=== PATIENT | male | born 1960 | race Caucasian/White ===

== ENCOUNTER 2024-11-24 00:46 | Outpatient (CLI) | payer MEDICARE, SELFPAY ==
[2024-11-24 10:00] LABS: Abs Immature Grans 0.02 10^3/uL (0.0-0.06); Absolute Basophil Count 0.08 10^3/uL (0.0-0.2); Absolute Lymphocyte Count 1.66 10^3/uL (1.2-3.4); Absolute Monocyte Count 0.85 10^3/uL (0.1-0.8); Absolute Neutrophil Count 6.26 10^3/uL (1.2-6.7); Basophils % 0.9 %; Eosinophils % 1.1 %; HCT 44.5 % (40.0-50.0); HGB 15.1 g/dL (13.5-17.5); Immature Grans % 0.2 %; Lymphocytes % 18.5 %; MCH 33.6 pg (27.0-33.0); MCHC 33.9 % (32.0-36.0); MCV 99 fL (80-95); MPV 8.2 fL (8.0-11.0); Monocytes % 9.5 %; Neutrophils % 69.8 %; Platelet Count 369 10^3/uL (130-400); RBC 4.49 10^6/uL (4.36-5.78); RDW 12.1 % (11.8-14.1); RDW-SD 44.8 fL; WBC 8.97 10^3/uL (4.4-10.8)
[2024-11-24 10:19] LABS: ALT 21 U/L (16-63); AST 10 U/L (15-37); Albumin 3.5 g/dL (3.4-5.0); Alkaline Phosphatase 105 U/L (46-116); Anion Gap 6.4 mmol/L (3-11); BUN 7 mg/dL (7-18); Bilirubin, Total 0.61 mg/dL (0.2-1.0); CO2 31.6 mmol/L (21.0-32.0); CREATININE 0.9 mg/dL (0.70-1.30); Calcium 9.5 mg/dL (8.5-10.1); Chloride 102 mmol/L (98-107); Estimated GFR 94.19 (mL/min/1.73m2); Glucose 108 mg/dL (74-106); Magnesium 2.1 mg/dL (1.8-2.4); Potassium 4.1 mmol/L (3.5-5.1); Sodium 140 mmol/L (136-145); Total Protein 7.4 g/dL (6.4-8.2)
== END 2024-11-24 00:47 | disposition home or self-care (01) ==
PROVIDERS: Visit Provider Internal Medicine Medical Oncology
DX: C15.8 Malignant neoplasm of overlapping sites of esophagus (principal)
CPT/HCPCS: 36415; 80053; 83735; 85025

== ENCOUNTER 2024-11-30 02:37 | Outpatient (CLI) | payer MEDICARE, SELFPAY ==
[2024-11-30 10:35] LABS: Abs Immature Grans 0.15 10^3/uL (0.0-0.06); Absolute Basophil Count 0.08 10^3/uL (0.0-0.2); Absolute Eosinophil Count 0.02 10^3/uL (0.0-0.7); Absolute Lymphocyte Count 0.73 10^3/uL (1.2-3.4); Absolute Neutrophil Count 5.69 10^3/uL (1.2-6.7); Basophils % 1.1 %; Eosinophils % 0.3 %; HCT 40.9 % (40.0-50.0); HGB 13.8 g/dL (13.5-17.5); Immature Grans % 2.1 %; MCH 33.3 pg (27.0-33.0); MCHC 33.7 % (32.0-36.0); MCV 99 fL (80-95); MPV 8.4 fL (8.0-11.0); Monocytes % 8.3 %; Neutrophils % 78.2 %; Platelet Count 314 10^3/uL (130-400); RBC 4.15 10^6/uL (4.36-5.78); RDW-SD 43.9 fL; WBC 7.27 10^3/uL (4.4-10.8)
[2024-11-30 11:03] LABS: ALT 30 U/L (16-63); AST 18 U/L (15-37); Alkaline Phosphatase 84 U/L (46-116); Anion Gap 8.8 mmol/L (3-11); BUN 12 mg/dL (7-18); Bilirubin, Total 0.76 mg/dL (0.2-1.0); CO2 30.2 mmol/L (21.0-32.0); CREATININE 0.9 mg/dL (0.70-1.30); Calcium 9.6 mg/dL (8.5-10.1); Chloride 97 mmol/L (98-107); Estimated GFR 94.19 (mL/min/1.73m2); Glucose 117 mg/dL (74-106); Magnesium 1.9 mg/dL (1.8-2.4); Potassium 4.4 mmol/L (3.5-5.1); Sodium 136 mmol/L (136-145); Total Protein 7.8 g/dL (6.4-8.2)
== END 2024-11-30 02:38 | disposition home or self-care (01) ==
PROVIDERS: Visit Provider Internal Medicine Medical Oncology
DX: C15.8 Malignant neoplasm of overlapping sites of esophagus (principal)
CPT/HCPCS: 36415; 80053; 83735; 85025

== ENCOUNTER 2024-12-07 01:59 | Outpatient (CLI) | payer MEDICARE, SELFPAY ==
[2024-12-07 08:28] LABS: Abs Immature Grans 0.03 10^3/uL (0.0-0.06); Absolute Basophil Count 0.03 10^3/uL (0.0-0.2); Absolute Eosinophil Count 0.02 10^3/uL (0.0-0.7); Absolute Lymphocyte Count 0.33 10^3/uL (1.2-3.4); Absolute Monocyte Count 0.49 10^3/uL (0.1-0.8); Absolute Neutrophil Count 2.91 10^3/uL (1.2-6.7); Basophils % 0.8 %; Eosinophils % 0.5 %; HCT 35.8 % (40.0-50.0); HGB 12.3 g/dL (13.5-17.5); Immature Grans % 0.8 %; Lymphocytes % 8.7 %; MCH 34.1 pg (27.0-33.0); MCHC 34.4 % (32.0-36.0); MCV 99 fL (80-95); MPV 8.1 fL (8.0-11.0); Monocytes % 12.9 %; Neutrophils % 76.3 %; Platelet Count 312 10^3/uL (130-400); RBC 3.61 10^6/uL (4.36-5.78); RDW 12.2 % (11.8-14.1); RDW-SD 44.6 fL; WBC 3.81 10^3/uL (4.4-10.8)
[2024-12-07 09:00] LABS: ALT 52 U/L (16-63); AST 19 U/L (15-37); Albumin 2.6 g/dL (3.4-5.0); Alkaline Phosphatase 72 U/L (46-116); Anion Gap 7.1 mmol/L (3-11); BUN 11 mg/dL (7-18); Bilirubin, Total 0.54 mg/dL (0.2-1.0); CO2 27.9 mmol/L (21.0-32.0); CREATININE 0.8 mg/dL (0.70-1.30); Calcium 9.2 mg/dL (8.5-10.1); Chloride 98 mmol/L (98-107); Estimated GFR 97.61 (mL/min/1.73m2); Glucose 120 mg/dL (74-106); Magnesium 1.9 mg/dL (1.8-2.4); Potassium 3.9 mmol/L (3.5-5.1); Sodium 133 mmol/L (136-145); Total Protein 7.3 g/dL (6.4-8.2)
== END 2024-12-07 02:00 | disposition home or self-care (01) ==
LOC: LBO 01:59
PROVIDERS: Visit Provider Internal Medicine Medical Oncology
DX: C15.8 Malignant neoplasm of overlapping sites of esophagus (principal)
CPT/HCPCS: 36415; 80053; 83735; 85025

== ENCOUNTER 2024-12-14 02:59 | Outpatient (CLI) | payer MEDICARE, SELFPAY ==
[2024-12-14 09:27] LABS: Abs Immature Grans 0.02 10^3/uL (0.0-0.06); Absolute Basophil Count 0.03 10^3/uL (0.0-0.2); Absolute Eosinophil Count 0.01 10^3/uL (0.0-0.7); Absolute Lymphocyte Count 0.32 10^3/uL (1.2-3.4); Absolute Monocyte Count 0.26 10^3/uL (0.1-0.8); Absolute Neutrophil Count 2.83 10^3/uL (1.2-6.7); Basophils % 0.9 %; Eosinophils % 0.3 %; HCT 36.5 % (40.0-50.0); Immature Grans % 0.6 %; Lymphocytes % 9.2 %; MCHC 32.9 % (32.0-36.0); MCV 100 fL (80-95); MPV 7.8 fL (8.0-11.0); Monocytes % 7.5 %; Neutrophils % 81.5 %; Platelet Count 315 10^3/uL (130-400); RBC 3.64 10^6/uL (4.36-5.78); RDW 12.5 % (11.8-14.1); RDW-SD 46.2 fL; WBC 3.47 10^3/uL (4.4-10.8)
[2024-12-14 09:52] LABS: ALT 30 U/L (16-63); AST 11 U/L (15-37); Albumin 2.6 g/dL (3.4-5.0); Alkaline Phosphatase 79 U/L (46-116); Anion Gap 8.2 mmol/L (3-11); BUN 10 mg/dL (7-18); CO2 29.8 mmol/L (21.0-32.0); CREATININE 0.8 mg/dL (0.70-1.30); Calcium 9.1 mg/dL (8.5-10.1); Chloride 102 mmol/L (98-107); Estimated GFR 97.61 (mL/min/1.73m2); Glucose 148 mg/dL (74-106); Magnesium 1.7 mg/dL (1.8-2.4); Potassium 3.9 mmol/L (3.5-5.1); Sodium 140 mmol/L (136-145); Total Protein 6.9 g/dL (6.4-8.2)
== END 2024-12-14 03:00 | disposition home or self-care (01) ==
LOC: LBO 02:59
PROVIDERS: Visit Provider Internal Medicine Medical Oncology
DX: C15.8 Malignant neoplasm of overlapping sites of esophagus (principal)
CPT/HCPCS: 36415; 80053; 83735; 85025

== ENCOUNTER 2024-12-21 02:05 | Outpatient (CLI) | payer MEDICARE, SELFPAY ==
[2024-12-21 09:39] LABS: Abs Immature Grans 0.02 10^3/uL (0.0-0.06); Absolute Basophil Count 0.03 10^3/uL (0.0-0.2); Absolute Eosinophil Count 0.03 10^3/uL (0.0-0.7); Absolute Lymphocyte Count 0.31 10^3/uL (1.2-3.4); Absolute Monocyte Count 0.19 10^3/uL (0.1-0.8); Absolute Neutrophil Count 2.33 10^3/uL (1.2-6.7); HCT 36.2 % (40.0-50.0); Immature Grans % 0.7 %; Lymphocytes % 10.7 %; MCH 33.1 pg (27.0-33.0); MCHC 33.1 % (32.0-36.0); MCV 100 fL (80-95); MPV 8.1 fL (8.0-11.0); Monocytes % 6.5 %; Neutrophils % 80.1 %; Platelet Count 211 10^3/uL (130-400); RBC 3.62 10^6/uL (4.36-5.78); RDW 12.9 % (11.8-14.1); RDW-SD 46.7 fL; WBC 2.91 10^3/uL (4.4-10.8)
[2024-12-21 09:54] LABS: ALT 24 U/L (16-63); AST 13 U/L (15-37); Albumin 2.8 g/dL (3.4-5.0); Alkaline Phosphatase 90 U/L (46-116); Anion Gap 7.8 mmol/L (3-11); BUN 8 mg/dL (7-18); Bilirubin, Total 0.35 mg/dL (0.2-1.0); CO2 28.2 mmol/L (21.0-32.0); CREATININE 0.8 mg/dL (0.70-1.30); Calcium 9.2 mg/dL (8.5-10.1); Chloride 103 mmol/L (98-107); Estimated GFR 97.61 (mL/min/1.73m2); Glucose 165 mg/dL (74-106); Magnesium 1.9 mg/dL (1.8-2.4); Potassium 3.8 mmol/L (3.5-5.1); Sodium 139 mmol/L (136-145); Total Protein 6.9 g/dL (6.4-8.2)
== END 2024-12-21 02:06 | disposition home or self-care (01) ==
PROVIDERS: Visit Provider Internal Medicine Medical Oncology
DX: C15.8 Malignant neoplasm of overlapping sites of esophagus (principal)
CPT/HCPCS: 36415; 80053; 83735; 85025

== ENCOUNTER 2024-12-28 04:21 | Outpatient (CLI) | payer MEDICARE, SELFPAY ==
[2024-12-28 09:43] LABS: Abs Immature Grans 0.01 10^3/uL (0.0-0.06); Absolute Basophil Count 0.03 10^3/uL (0.0-0.2); Absolute Eosinophil Count 0.04 10^3/uL (0.0-0.7); Absolute Lymphocyte Count 0.24 10^3/uL (1.2-3.4); Absolute Monocyte Count 0.26 10^3/uL (0.1-0.8); Absolute Neutrophil Count 1.66 10^3/uL (1.2-6.7); Basophils % 1.3 %; Eosinophils % 1.8 %; HCT 35.1 % (40.0-50.0); HGB 11.9 g/dL (13.5-17.5); Immature Grans % 0.4 %; Lymphocytes % 10.7 %; MCH 33.4 pg (27.0-33.0); MCHC 33.9 % (32.0-36.0); MCV 99 fL (80-95); MPV 8.4 fL (8.0-11.0); Monocytes % 11.6 %; Neutrophils % 74.2 %; Platelet Count 176 10^3/uL (130-400); RBC 3.56 10^6/uL (4.36-5.78); RDW 13.4 % (11.8-14.1); RDW-SD 47.6 fL; WBC 2.24 10^3/uL (4.4-10.8)
[2024-12-28 09:59] LABS: ALT 23 U/L (16-63); AST 12 U/L (15-37); Albumin 3.1 g/dL (3.4-5.0); Alkaline Phosphatase 95 U/L (46-116); Anion Gap 4.7 mmol/L (3-11); BUN 6 mg/dL (7-18); Bilirubin, Total 0.6 mg/dL (0.2-1.0); CO2 31.3 mmol/L (21.0-32.0); CREATININE 0.8 mg/dL (0.70-1.30); Calcium 9.4 mg/dL (8.5-10.1); Chloride 103 mmol/L (98-107); Estimated GFR 97.61 (mL/min/1.73m2); Glucose 109 mg/dL (74-106); Magnesium 1.9 mg/dL; Potassium 4.2 mmol/L (3.5-5.1); Sodium 139 mmol/L (136-145); Total Protein 7.2 g/dL (6.4-8.2)
== END 2024-12-28 04:22 | disposition home or self-care (01) ==
LOC: LBO 04:22
PROVIDERS: Visit Provider Internal Medicine Medical Oncology
DX: C15.8 Malignant neoplasm of overlapping sites of esophagus (principal)
CPT/HCPCS: 36415; 80053; 83735; 85025

== ENCOUNTER 2025-04-19 01:56 | Outpatient (RCR) | payer MEDICARE, SELFPAY ==
[2025-04-19] MEDS: Normal Saline Flush 10 ML SYR IVP (09:04)
[2025-04-19 09:18] LABS: Abs Immature Grans 0.03 10^3/uL (0.0-0.06); Absolute Basophil Count 0.04 10^3/uL (0.0-0.2); Absolute Eosinophil Count 0.11 10^3/uL (0.0-0.7); Absolute Lymphocyte Count 0.67 10^3/uL (1.2-3.4); Absolute Monocyte Count 0.75 10^3/uL (0.1-0.8); Absolute Neutrophil Count 7.44 10^3/uL (1.2-6.7); Basophils % 0.4 %; Eosinophils % 1.2 %; HCT 44.3 % (40.0-50.0); HGB 14.6 g/dL (13.5-17.5); Immature Grans % 0.3 %; Lymphocytes % 7.4 %; MCH 31.3 pg (27.0-33.0); MCV 95 fL (80-95); MPV 8.5 fL (8.0-11.0); Monocytes % 8.3 %; Neutrophils % 82.4 %; Platelet Count 367 10^3/uL (130-400); RBC 4.67 10^6/uL (4.36-5.78); RDW 13.2 % (11.8-14.1); RDW-SD 46.8 fL; WBC 9.04 10^3/uL (4.4-10.8)
[2025-04-19 09:36] LABS: ALT 21 U/L (16-63); AST 14 U/L (15-37); Albumin 3.6 g/dL (3.4-5.0); Alkaline Phosphatase 138 U/L (46-116); Anion Gap 8.1 mmol/L (3-11); BUN 7 mg/dL (7-18); Bilirubin, Total 0.4 mg/dL (0.2-1.0); CO2 29.9 mmol/L (21.0-32.0); CREATININE 0.8 mg/dL (0.70-1.30); Calcium 9.8 mg/dL (8.5-10.1); Chloride 98 mmol/L (98-107); Estimated GFR 97.61 (mL/min/1.73m2); Glucose 110 mg/dL (74-106); Magnesium 2.1 mg/dL (1.8-2.4); Sodium 136 mmol/L (136-145); Total Protein 8.3 g/dL (6.4-8.2)
== END 2025-04-19 23:59 | disposition home or self-care (01) ==
LOC: INF 01:56
PROVIDERS: Visit Provider Internal Medicine Medical Oncology
DX: C15.8 Malignant neoplasm of overlapping sites of esophagus (principal); Z45.2 Encounter for adjustment and management of vascular access device
CPT/HCPCS: 36591; 80053; 83735; 85025

== ENCOUNTER 2025-05-17 02:45 | Outpatient (RCR) | payer MEDICARE, SELFPAY ==
[2025-05-04] MEDS: Normal Saline Flush 10 ML SYR IVP (08:50)
[2025-05-04 09:14] LABS: Abs Immature Grans 0.01 10^3/uL (0.0-0.06); HCT 41.0 % (40.0-50.0); HGB 13.8 g/dL (13.5-17.5); Immature Grans % 0.1 %; MCH 31.6 pg (27.0-33.0); MCHC 33.7 % (32.0-36.0); MCV 94 fL (80-95); MPV 8.2 fL (8.0-11.0); Platelet Count 294 10^3/uL (130-400); RBC 4.37 10^6/uL (4.36-5.78); RDW 13.5 % (11.8-14.1); RDW-SD 45.8 fL; WBC 7.92 10^3/uL (4.4-10.8)
[2025-05-04 09:32] LABS: ALT 19 U/L (16-63); AST 15 U/L (15-37); Albumin 3.4 g/dL (3.4-5.0); Alkaline Phosphatase 135 U/L (46-116); Anion Gap 8.6 mmol/L (3-11); BUN 11 mg/dL (7-18); Bilirubin, Total 0.4 mg/dL (0.2-1.0); CO2 29.4 mmol/L (21.0-32.0); Calcium 9.8 mg/dL (8.5-10.1); Chloride 99 mmol/L (98-107); Estimated GFR 106.46 (mL/min/1.73m2); Glucose 103 mg/dL (74-106); Magnesium 2.3 mg/dL (1.8-2.4); Potassium 4.1 mmol/L (3.5-5.1); Sodium 137 mmol/L (136-145); Total Protein 7.9 g/dL (6.4-8.2)
[2025-05-17 10:30] LABS: Abs Immature Grans 0.03 10^3/uL (0.0-0.06); HCT 38.0 % (40.0-50.0); HGB 12.8 g/dL (13.5-17.5); Immature Grans % 0.4 %; MCH 31.1 pg (27.0-33.0); MCHC 33.7 % (32.0-36.0); MCV 93 fL (80-95); MPV 8.5 fL (8.0-11.0); Platelet Count 182 10^3/uL (130-400); RBC 4.11 10^6/uL (4.36-5.78); RDW 14.2 % (11.8-14.1); RDW-SD 47.1 fL; WBC 7.62 10^3/uL (4.4-10.8)
[2025-05-17 10:58] LABS: ALT 24 U/L (16-63); AST 23 U/L (15-37); Albumin 3.2 g/dL (3.4-5.0); Alkaline Phosphatase 122 U/L (46-116); Anion Gap 8.9 mmol/L (3-11); BUN 12 mg/dL (7-18); Bilirubin, Total 0.5 mg/dL (0.2-1.0); CO2 29.1 mmol/L (21.0-32.0); Calcium 9.7 mg/dL (8.5-10.1); Chloride 101 mmol/L (98-107); Glucose 104 mg/dL (74-106); Magnesium 2.1 mg/dL (1.8-2.4); Potassium 3.9 mmol/L (3.5-5.1); Sodium 139 mmol/L (136-145); Total Protein 7.5 g/dL (6.4-8.2)
[2025-05-17] MEDS: Normal Saline Flush 10 ML SYR IVP (11:28)
== END 2025-05-20 23:59 | disposition home or self-care (01) ==
LOC: INF 02:45
PROVIDERS: Visit Provider Internal Medicine Medical Oncology
DX: C15.8 Malignant neoplasm of overlapping sites of esophagus (principal); Z45.2 Encounter for adjustment and management of vascular access device
CPT/HCPCS: 36591; 80053; 83735; 85025

== ENCOUNTER 2025-06-01 02:04 | Outpatient (RCR) | payer MEDICARE, SELFPAY ==
[2025-06-01 09:02] LABS: Abs Immature Grans 0.01 10^3/uL (0.0-0.06); HCT 34.2 % (40.0-50.0); HGB 11.7 g/dL (13.5-17.5); Immature Grans % 0.2 %; MCH 32.4 pg (27.0-33.0); MCHC 34.2 % (32.0-36.0); MCV 95 fL (80-95); MPV 8.6 fL (8.0-11.0); Platelet Count 161 10^3/uL (130-400); RBC 3.61 10^6/uL (4.36-5.78); RDW 15.4 % (11.8-14.1); RDW-SD 51.6 fL; WBC 5.67 10^3/uL (4.4-10.8)
[2025-06-01] MEDS: Normal Saline Flush 10 ML SYR IVP (09:12)
[2025-06-01 09:32] LABS: ALT 20 U/L (16-63); AST 19 U/L (15-37); Albumin 2.9 g/dL (3.4-5.0); Alkaline Phosphatase 119 U/L (46-116); Anion Gap 4.7 mmol/L (3-11); BUN 16 mg/dL (7-18); Bilirubin, Total 0.5 mg/dL (0.2-1.0); CO2 31.3 mmol/L (21.0-32.0); Calcium 9.8 mg/dL (8.5-10.1); Chloride 102 mmol/L (98-107); Estimated GFR 100.99 (mL/min/1.73m2); Glucose 100 mg/dL (74-106); Magnesium 2.0 mg/dL (1.8-2.4); Potassium 3.7 mmol/L (3.5-5.1); Sodium 138 mmol/L (136-145); Total Protein 7.1 g/dL (6.4-8.2)
== END 2025-06-20 23:59 | disposition home or self-care (01) ==
LOC: INF 02:04
PROVIDERS: Visit Provider Internal Medicine Medical Oncology
DX: C15.8 Malignant neoplasm of overlapping sites of esophagus (principal); Z45.2 Encounter for adjustment and management of vascular access device
CPT/HCPCS: 36591; 80053; 83735; 85025

== ENCOUNTER 2025-07-06 04:04 | Outpatient (RCR) | payer MEDICARE, SELFPAY ==
[2025-07-06] MEDS: Normal Saline Flush 10 ML SYR IVP (08:53)
[2025-07-06 08:58] LABS: Abs Immature Grans 0.07 10^3/uL (0.0-0.06); HCT 24.0 % (40.0-50.0); HGB 7.8 g/dL (13.5-17.5); Immature Grans % 0.5 %; MCH 32.5 pg (27.0-33.0); MCHC 32.5 % (32.0-36.0); MCV 100 fL (80-95); MPV 9.1 fL (8.0-11.0); Platelet Count 330 10^3/uL (130-400); RBC 2.40 10^6/uL (4.36-5.78); RDW 16.6 % (11.8-14.1); RDW-SD 61.1 fL; WBC 13.58 10^3/uL (4.4-10.8)
[2025-07-06 09:16] LABS: ALT 36 U/L (16-63); AST 18 U/L (15-37); Albumin 1.9 g/dL (3.4-5.0); Alkaline Phosphatase 135 U/L (46-116); Anion Gap 8.8 mmol/L (3-11); BUN 30 mg/dL (7-18); Bilirubin, Total 0.4 mg/dL (0.2-1.0); CO2 27.2 mmol/L (21.0-32.0); Calcium 9.1 mg/dL (8.5-10.1); Chloride 104 mmol/L (98-107); Glucose 201 mg/dL (74-106); Magnesium 2.1 mg/dL (1.8-2.4); Potassium 3.7 mmol/L (3.5-5.1); Sodium 140 mmol/L (136-145); Total Protein 6.7 g/dL (6.4-8.2)
[2025-07-06 09:29] LABS: Hypochromasia 2+
== END 2025-07-20 23:59 | disposition home or self-care (01) ==
LOC: INF 04:04
PROVIDERS: Visit Provider Internal Medicine Medical Oncology
DX: C15.8 Malignant neoplasm of overlapping sites of esophagus (principal); Z45.2 Encounter for adjustment and management of vascular access device
CPT/HCPCS: 36591; 80053; 83735; 85025

== ENCOUNTER 2025-08-16 08:30 | Outpatient (RCR) | payer MEDICARE, SELFPAY ==
[2025-07-26] MEDS: Normal Saline Flush 10 ML SYR IVP (09:27)
[2025-07-26 09:42] LABS: Abs Immature Grans 0.08 10^3/uL (0.0-0.06); HCT 26.0 % (40.0-50.0); HGB 8.4 g/dL (13.5-17.5); Immature Grans % 0.8 %; MCH 31.2 pg (27.0-33.0); MCHC 32.3 % (32.0-36.0); MCV 97 fL (80-95); MPV 9.1 fL (8.0-11.0); Platelet Count 348 10^3/uL (130-400); RBC 2.69 10^6/uL (4.36-5.78); RDW 16.4 % (11.8-14.1); RDW-SD 57.7 fL; WBC 10.65 10^3/uL (4.4-10.8)
[2025-07-26 10:11] LABS: ALT 108 U/L (16-63); AST 56 U/L (15-37); Albumin 1.7 g/dL (3.4-5.0); Alkaline Phosphatase 159 U/L (46-116); Anion Gap 7.2 mmol/L (3-11); BUN 18 mg/dL (7-18); Bilirubin, Total 0.2 mg/dL (0.2-1.0); CO2 27.8 mmol/L (21.0-32.0); Calcium 10.0 mg/dL (8.5-10.1); Chloride 99 mmol/L (98-107); Estimated GFR 100.99 (mL/min/1.73m2); Glucose 131 mg/dL (74-106); Magnesium 1.9 mg/dL (1.8-2.4); Potassium 3.9 mmol/L (3.5-5.1); Sodium 134 mmol/L (136-145); Total Protein 6.4 g/dL (6.4-8.2)
== END 2025-08-20 23:59 | disposition home or self-care (01) ==
LOC: INF 08:30
PROVIDERS: Visit Provider Internal Medicine Medical Oncology
DX: C15.8 Malignant neoplasm of overlapping sites of esophagus (principal); Z45.2 Encounter for adjustment and management of vascular access device
CPT/HCPCS: 36591; 80053; 83735; 85025